=== PATIENT | female | born 1980 | race Caucasian/White ===

== ENCOUNTER 2016-05-16 18:31 | Emergency (ER) | payer MEDICARE | END 2016-05-17 08:46 | disposition home or self-care (01) | LOC: ER 18:31 | DX: Z04.8 Encounter for examination and observation for other specified reasons (principal); Z86.14 Personal history of Methicillin resistant Staphylococcus aureus infection; E11.9 Type 2 diabetes mellitus without complications; J45.909 Unspecified asthma, uncomplicated; F17.210 Nicotine dependence, cigarettes, uncomplicated; Z88.0 Allergy status to penicillin; Z88.1 Allergy status to other antibiotic agents; Z79.4 Long term (current) use of insulin; Z79.899 Other long term (current) drug therapy | CPT/HCPCS: 99282 ==